=== PATIENT | male | born 1980 | race Caucasian/White ===

== ENCOUNTER 2018-02-12 15:00 | Emergency (ER) | payer MEDICAID, OTHER ==
[~2018-02-12] VITALS: Ht 172.7 cm; Wt 100.8 kg
[~2018-02-12 15:00] MED LIST: ALBU8.5H8 IH; ALBU8HFA PO; AMOX500C2 PO; DIPH-423 PO; FAMO-1 PO; GUAI120015 PO; GUAI1TBM19 PO; HYDR-4353 PO; HYDR-4383 PO; IBUP-1051 PO; IBUP-1984 PO; NAPR-232 PO; NO HOME MEDS; PRED20TA PO
[2018-02-12 15:16] VITALS: BP 154/94
[2018-02-12] MEDS ORDERED: ORPH100T2 PO (15:27)
[2018-02-12] MEDS ORDERED: HYDR-4353 PO (15:27)
== END 2018-02-12 15:36 | disposition home or self-care (01) ==
LOC: ER 15:00
DX: S16.1XXA Strain of muscle, fascia and tendon at neck level, initial encounter (principal); G44.209 Tension-type headache, unspecified, not intractable; J44.9 Chronic obstructive pulmonary disease, unspecified; K21.9 Gastro-esophageal reflux disease without esophagitis; G89.29 Other chronic pain; F15.90 Other stimulant use, unspecified, uncomplicated; Z91.030 Bee allergy status; Z79.2 Long term (current) use of antibiotics; Z79.899 Other long term (current) drug therapy; V49.59XA Passenger injured in collision with other motor vehicles in traffic accident, initial encounter; Y93.89 Activity, other specified; Y92.488 Other paved roadways as the place of occurrence of the external cause; Y99.8 Other external cause status
CPT/HCPCS: 99283

== ENCOUNTER 2019-02-20 12:43 | Emergency (ER) | payer MEDICAID, OTHER ==
[~2019-02-20] VITALS: Ht 172.7 cm; Wt 100.5 kg
[~2019-02-20 12:43] MED LIST changes: +ORPH100T2 PO
--- NOTE | 2019-02-20 13:26 | NUR ---
relieving RN for break, pt is resting quietly on gurney, c/o rt sided chest, rib, axillary and rt shoulder blade pain since Sunday, constant, "sharp", increases with deep breath, moving, no n/v, no SOB, no diaphoresis, no recent trauma, waiting to be evaluated by provider
[2019-02-20 14:10] LABS: BASOPHILS % (AUTO) 0.3 % (0-1); EOSINOPHILS # (AUTO) 0.2 X10'3 (0-0.9); EOSINOPHILS % (AUTO) 2.3 % (0-6); HEMATOCRIT 41.7 % (42.0-52.0); HEMOGLOBIN 14.7 g/dl (14.0-17.9); LYMPHOCYTES # (AUTO) 1.9 X10'3 (1.1-4.8); LYMPHOCYTES % (AUTO) 29.1 % (21-51); MEAN CORPUSCULAR HEMOGLOBIN 29.1 PG (27.0-31.0); MEAN CORPUSCULAR HGB CONC 35.1 g/dL (33.0-36.5); MEAN CORPUSCULAR VOLUME 82.7 FL (78-98); MEAN PLATELET VOLUME 10.1 FL (7.4-10.4); MONOCYTES # (AUTO) 0.5 X10'3 (0-0.9); MONOCYTES % (AUTO) 8.2 % (2-12); NEUTROPHILS # (AUTO) 3.9 X10'3 (1.8-7.7); NEUTROPHILS % (AUTO) 60.1 % (42-75); PLATELET COUNT 190 X10'3 (140-440); RED BLOOD COUNT 5.04 X10'6 (4.70-6.10); RED CELL DISTRIBUTION WIDTH 12.5 % (11.5-14.5); WHITE BLOOD COUNT 6.5 X10'3 (4.5-11.0)
[2019-02-20 14:16] LABS: ALANINE AMINOTRANSFERASE 185 U/L (12-78); ALBUMIN 4.5 G/DL (3.4-5.0); ALBUMIN/GLOBULIN RATIO 1.4 (1.1-1.5); ALKALINE PHOSPHATASE 44 IU/L (46-116); ANION GAP 7 (8-16); ASPARTATE AMINO TRANSFERASE 63 U/L (10-37); BILIRUBIN,TOTAL 0.5 MG/DL (0.1-1.0); BLOOD UREA NITROGEN 15 MG/DL (7-18); BUN/CREATININE RATIO 18.5 (5.4-32.0); CALCIUM 8.7 MG/DL (8.5-10.1); CHLORIDE 102 MMOL/L (99-107); CREATININE 0.81 MG/DL (0.60-1.10); D-DIMER < 0.19 MG/L FEU (0-0.50); GLUCOSE 94 MG/DL (70-104); PARTIAL THROMBOPLASTIN TIME 26 SECONDS (22-32); SODIUM 139 MMOL/L (135-145); TOTAL CARBON DIOXIDE 29.6 MMOL/L (24-32); TOTAL PROTEIN 7.7 G/DL (6.4-8.2); eGFR > 90 ML/MIN
[2019-02-20] MEDS ORDERED: ketorolac trometh inj. 60 MG/2 ML VIAL IM ONE (14:35)
[2019-02-20] MEDS ORDERED: CYCL-1 PO (14:44)
[2019-02-20] MEDS ORDERED: iohexol 350MG/ML 100ml bottle IV ONE (15:07)
--- NOTE | 2019-02-20 15:38 | NUR ---
Patient went to CT
[2019-02-20 16:53] VITALS: BP 121/71
[2019-02-20] MEDS ORDERED: DICL50TA8 PO (17:00)
== END 2019-02-20 17:09 | disposition home or self-care (01) ==
LOC: ER 12:44
DX: R07.89 Other chest pain (principal); J44.9 Chronic obstructive pulmonary disease, unspecified; K21.9 Gastro-esophageal reflux disease without esophagitis; G89.29 Other chronic pain; F15.90 Other stimulant use, unspecified, uncomplicated; Z91.030 Bee allergy status; Z79.82 Long term (current) use of aspirin; Z79.899 Other long term (current) drug therapy
CPT/HCPCS: 36415; 71045; 71275; 80053; 84484; 85025; 85379; 85610; 85730; 93005; 96372; 99284; J1885; Q9967

== ENCOUNTER 2020-09-01 19:46 | Emergency (ER) | payer MEDICAID ==
[~2020-09-01] VITALS: Ht 172.7 cm; Wt 78.6 kg
[~2020-09-01 19:46] MED LIST changes: +CYCL-1 PO; +DICL50TA8 PO
[2020-09-01 20:07] VITALS: BP 131/81
[2020-09-01] MEDS ORDERED: acetaminophen 325mg tablet PO ONE (21:15)
== END 2020-09-01 21:44 | disposition home or self-care (01) ==
LOC: ER 19:47
DX: J02.9 Acute pharyngitis, unspecified (principal); Z20.822 Contact with and (suspected) exposure to COVID-19; R19.7 Diarrhea, unspecified; R06.02 Shortness of breath; R51.9 Headache, unspecified; R53.83 Other fatigue; J44.9 Chronic obstructive pulmonary disease, unspecified; K21.9 Gastro-esophageal reflux disease without esophagitis; G89.29 Other chronic pain; F17.200 Nicotine dependence, unspecified, uncomplicated; F12.90 Cannabis use, unspecified, uncomplicated; Z87.01 Personal history of pneumonia (recurrent); Z91.030 Bee allergy status; Z79.2 Long term (current) use of antibiotics; Z79.899 Other long term (current) drug therapy
CPT/HCPCS: 87635; 99283; C9803

== ENCOUNTER 2020-11-18 08:48 | Emergency (ER) | payer MEDICAID ==
[~2020-11-18] VITALS: Ht 172.7 cm; Wt 81.8 kg
[~2020-11-18 08:48] MED LIST changes: +ALBU8.5H17 IH; -ALBU8.5H8 IH
[2020-11-18] MEDS ORDERED: ketorolac trometh. 30mg/ml inj. IM ONE (09:10)
[2020-11-18 09:26] LABS: BASOPHILS # (AUTO) 0.1 X10'3 (0-0.2); BASOPHILS % (AUTO) 0.8 % (0-1); EOSINOPHILS # (AUTO) 0.1 X10'3 (0-0.9); EOSINOPHILS % (AUTO) 1.8 % (0-6); HEMATOCRIT 42.2 % (42.0-52.0); HEMOGLOBIN 14.9 g/dl (14.0-17.9); LYMPHOCYTES # (AUTO) 1.6 X10'3 (1.1-4.8); LYMPHOCYTES % (AUTO) 22.9 % (21-51); MEAN CORPUSCULAR HEMOGLOBIN 29.6 PG (27.0-31.0); MEAN CORPUSCULAR HGB CONC 35.3 g/dL (33.0-36.5); MEAN PLATELET VOLUME 9.7 FL (7.4-10.4); MONOCYTES # (AUTO) 0.4 X10'3 (0-0.9); MONOCYTES % (AUTO) 6.2 % (2-12); NEUTROPHILS # (AUTO) 4.9 X10'3 (1.8-7.7); NEUTROPHILS % (AUTO) 68.3 % (42-75); PLATELET COUNT 225 X10'3 (140-440); RED BLOOD COUNT 5.02 X10'6 (4.70-6.10); RED CELL DISTRIBUTION WIDTH 12.8 % (11.5-14.5); WHITE BLOOD COUNT 7.1 X10'3 (4.5-11.0)
[2020-11-18 09:35] LABS: ALANINE AMINOTRANSFERASE 30 U/L (12-78); ALBUMIN 4.4 G/DL (3.4-5.0); ALBUMIN/GLOBULIN RATIO 1.3 (1.1-1.5); ALKALINE PHOSPHATASE 46 IU/L (46-116); ANION GAP 9 (8-16); ASPARTATE AMINO TRANSFERASE 13 U/L (10-37); BILIRUBIN,TOTAL 0.5 MG/DL (0.1-1.0); BLOOD UREA NITROGEN 16 MG/DL (7-18); BUN/CREATININE RATIO 16.2 (5.4-32.0); CALCIUM 9.1 MG/DL (8.5-10.1); CHLORIDE 106 MMOL/L (99-107); CREATININE 0.99 MG/DL (0.60-1.10); GLUCOSE 111 MG/DL (70-104); POTASSIUM 4.2 MMOL/L (3.5-5.1); SODIUM 140 MMOL/L (135-145); TOTAL CARBON DIOXIDE 25.1 MMOL/L (24-32); TOTAL PROTEIN 7.7 G/DL (6.4-8.2); eGFR 84 ML/MIN
[2020-11-18] MEDS ORDERED: IBUP-1986 PO (09:48)
[2020-11-18 10:05] LABS: D-DIMER < 0.19 MG/L FEU (0-0.50)
[2020-11-18 10:45] VITALS: BP 125/81
== END 2020-11-18 10:46 | disposition home or self-care (01) ==
LOC: ER 08:48
DX: R09.1 Pleurisy (principal); J44.9 Chronic obstructive pulmonary disease, unspecified; G89.29 Other chronic pain; M54.9 Dorsalgia, unspecified; F12.10 Cannabis abuse, uncomplicated; F15.10 Other stimulant abuse, uncomplicated; Z88.1 Allergy status to other antibiotic agents; Z88.8 Allergy status to other drugs, medicaments and biological substances; Z91.030 Bee allergy status
CPT/HCPCS: 36415; 71045; 80053; 83880; 85025; 85379; 93005; 96372; 99285; J1885

== ENCOUNTER 2020-12-14 12:50 | Emergency (ER) | payer MEDICAID ==
[~2020-12-14] VITALS: Ht 172.7 cm; Wt 81.8 kg
[~2020-12-14 12:50] MED LIST changes: +IBUP-1986 PO
[2020-12-14 12:53] VITALS: BP 136/91
[2020-12-14] MEDS ORDERED: ketorolac tromethamine 15mg/ml inj. IM ONE (13:30)
[2020-12-14] MEDS ORDERED: orphenadrine citrate 60mg/2ml inj. IM ONE (13:30)
[2020-12-14] MEDS ORDERED: ORPH100T2 PO (14:23)
[2020-12-14] MEDS ORDERED: IBUP-1984 PO (14:23)
== END 2020-12-14 15:03 | disposition home or self-care (01) ==
LOC: ER 12:50
DX: M54.42 Lumbago with sciatica, left side (principal); G89.29 Other chronic pain; J44.9 Chronic obstructive pulmonary disease, unspecified; K21.9 Gastro-esophageal reflux disease without esophagitis; F12.90 Cannabis use, unspecified, uncomplicated; F15.90 Other stimulant use, unspecified, uncomplicated; Z91.030 Bee allergy status; Z79.2 Long term (current) use of antibiotics; Z87.01 Personal history of pneumonia (recurrent); Z79.899 Other long term (current) drug therapy
CPT/HCPCS: 96372; 99284; J1885; J2360

== ENCOUNTER 2020-12-26 18:52 | Emergency (ER) | payer MEDICAID ==
[~2020-12-26] VITALS: Ht 172.7 cm; Wt 81.8 kg
[2020-12-26 19:00] VITALS: BP 126/79
== END 2020-12-26 21:40 | disposition home or self-care (01) ==
LOC: ER 18:53
DX: B34.9 Viral infection, unspecified (principal); Z20.822 Contact with and (suspected) exposure to COVID-19; K21.9 Gastro-esophageal reflux disease without esophagitis; J44.9 Chronic obstructive pulmonary disease, unspecified; G89.29 Other chronic pain; M54.9 Dorsalgia, unspecified; F12.10 Cannabis abuse, uncomplicated; F15.10 Other stimulant abuse, uncomplicated; Z91.030 Bee allergy status
CPT/HCPCS: 87635; 99283; C9803

== ENCOUNTER 2021-02-22 20:18 | Emergency (ER) | payer MEDICAID ==
[~2021-02-22] VITALS: Ht 172.7 cm; Wt 81.8 kg
[2021-02-22 20:33] VITALS: BP 136/96
== END 2021-02-22 21:57 | disposition home or self-care (01) ==
LOC: ER 20:19
DX: U07.1 COVID-19 (principal); J44.9 Chronic obstructive pulmonary disease, unspecified; K21.9 Gastro-esophageal reflux disease without esophagitis; F12.90 Cannabis use, unspecified, uncomplicated; F15.90 Other stimulant use, unspecified, uncomplicated; Z91.030 Bee allergy status; Z79.899 Other long term (current) drug therapy
CPT/HCPCS: 71045; 87635; 99284; C9803

== ENCOUNTER 2021-02-23 20:02 | Emergency (ER) | payer MEDICAID ==
[~2021-02-23] VITALS: Ht 172.7 cm; Wt 81.8 kg
[2021-02-23 20:18] VITALS: BP 164/92
== END 2021-02-23 20:42 | disposition left against medical advice (07) ==
LOC: ER 20:03
DX: U07.1 COVID-19 (principal); R07.89 Other chest pain; J44.9 Chronic obstructive pulmonary disease, unspecified; K21.9 Gastro-esophageal reflux disease without esophagitis; F12.90 Cannabis use, unspecified, uncomplicated; F15.90 Other stimulant use, unspecified, uncomplicated; Z91.030 Bee allergy status; Z79.899 Other long term (current) drug therapy
CPT/HCPCS: 93005; 99283

== ENCOUNTER 2021-03-01 12:19 | Emergency (ER) | payer MEDICAID ==
[~2021-03-01] VITALS: Ht 172.7 cm; Wt 29.1 kg
[2021-03-01 12:55] VITALS: BP 128/94
[2021-03-01 13:54] LABS: BASOPHILS # (AUTO) 0.1 X10'3 (0-0.2); BASOPHILS % (AUTO) 1.3 % (0-1); EOSINOPHILS % (AUTO) 0.3 % (0-6); HEMATOCRIT 46.5 % (42.0-52.0); HEMOGLOBIN 15.9 g/dl (14.0-17.9); LYMPHOCYTES # (AUTO) 1.4 X10'3 (1.1-4.8); LYMPHOCYTES % (AUTO) 21.4 % (21-51); MEAN CORPUSCULAR HEMOGLOBIN 28.9 PG (27.0-31.0); MEAN CORPUSCULAR HGB CONC 34.2 g/dL (33.0-36.5); MEAN CORPUSCULAR VOLUME 84.5 FL (78-98); MEAN PLATELET VOLUME 9.5 FL (7.4-10.4); MONOCYTES # (AUTO) 0.6 X10'3 (0-0.9); MONOCYTES % (AUTO) 8.9 % (2-12); NEUTROPHILS # (AUTO) 4.5 X10'3 (1.8-7.7); NEUTROPHILS % (AUTO) 68.1 % (42-75); PLATELET COUNT 261 X10'3 (140-440); RED CELL DISTRIBUTION WIDTH 12.6 % (11.5-14.5); WHITE BLOOD COUNT 6.6 X10'3 (4.5-11.0)
[2021-03-01 14:07] LABS: ALANINE AMINOTRANSFERASE 30 U/L (12-78); ALBUMIN 4.5 G/DL (3.4-5.0); ALBUMIN/GLOBULIN RATIO 1.2 (1.1-1.5); ALKALINE PHOSPHATASE 46 IU/L (46-116); ANION GAP 11 (8-16); ASPARTATE AMINO TRANSFERASE 16 U/L (10-37); BILIRUBIN,TOTAL 0.9 MG/DL (0.1-1.0); BLOOD UREA NITROGEN 12 MG/DL (7-18); BUN/CREATININE RATIO 13.8 (5.4-32.0); CALCIUM 8.9 MG/DL (8.5-10.1); CHLORIDE 105 MMOL/L (99-107); CREATININE 0.87 MG/DL (0.60-1.10); GLUCOSE 108 MG/DL (70-104); LIPASE 85 U/L (73-393); POTASSIUM 3.5 MMOL/L (3.5-5.1); SODIUM 141 MMOL/L (135-145); TOTAL CARBON DIOXIDE 25.1 MMOL/L (24-32); TOTAL PROTEIN 8.3 G/DL (6.4-8.2); eGFR > 90 ML/MIN
[2021-03-01] MEDS ORDERED: ketorolac tromethamine 15mg/ml inj. IM ONE (15:10)
[2021-03-01] MEDS ORDERED: ondansetron 4mg rapidly disintigrating tab PO ONE (15:15)
[2021-03-01] MEDS ORDERED: LOPE2CAP PO (16:07)
[2021-03-01] MEDS ORDERED: ONDA8TAB13 PO (16:07)
[2021-03-01 16:16] LABS: CLARITY,URINE SLIGHTLY CLOUDY (Clear); COLOR,URINE YELLOW (Yellow); GLUCOSE, URINE NEGATIVE (Neg); KETONES,URINE 15 mg/dl (Neg); LEUKOCYTE ESTERASE ,URINE NEGATIVE (Neg); NITRITES, URINE NEGATIVE (Neg); OCCULT BLOOD,URINE NEGATIVE (Neg); PH,URINE 6.5 (4.8-8.0); PROTEIN,URINE NEGATIVE (Neg); UA COLLECTION TYPE CLN CATCH MIDSTREAM; UROBILINOGEN,URINE 0.2 E.U/dL (0.2-1.0)
[2021-03-01 16:42] LABS: MUCUS STRANDS MANY /LPF (Neg); SQUAMOUS EPITHELIAL CELL,UR FEW /LPF (FEW)
[2021-03-01 16:43] LABS: BACTERIA,URINE FEW /HPF (Neg); RBC,URINE 0-2 /HPF (0-2); WBC,URINE 0-4 /HPF (0-4)
== END 2021-03-01 16:14 | disposition home or self-care (01) ==
LOC: ER 12:20
DX: U07.1 COVID-19 (principal); R10.10 Upper abdominal pain, unspecified; R53.83 Other fatigue; R11.2 Nausea with vomiting, unspecified; R19.7 Diarrhea, unspecified; J44.9 Chronic obstructive pulmonary disease, unspecified; K21.9 Gastro-esophageal reflux disease without esophagitis; G89.29 Other chronic pain; F12.90 Cannabis use, unspecified, uncomplicated; F15.90 Other stimulant use, unspecified, uncomplicated; Z87.01 Personal history of pneumonia (recurrent); Z91.030 Bee allergy status; Z79.2 Long term (current) use of antibiotics; Z79.899 Other long term (current) drug therapy
CPT/HCPCS: 36415; 74176; 80053; 81001; 83690; 85025; 96372; 99284; J1885

== ENCOUNTER 2021-09-22 06:43 | Emergency (ER) | payer MEDICAID ==
[~2021-09-22] VITALS: Ht 172.7 cm; Wt 85.9 kg
[~2021-09-22 06:43] MED LIST changes: +LOPE2CAP PO; +ONDA8TAB13 PO
[2021-09-22 06:44] VITALS: BP 139/89
[2021-09-22] MEDS ORDERED: triamcinolone acetonide 40mg/ml inj IM ONE (07:35)
[2021-09-22] MEDS ORDERED: orphenadrine citrate 60mg/2ml inj. IM ONE (07:35)
[2021-09-22] MEDS ORDERED: MELO-100 PO (09:44)
== END 2021-09-22 09:55 | disposition home or self-care (01) ==
LOC: ER 06:43
DX: M54.50 Low back pain, unspecified (principal); J44.9 Chronic obstructive pulmonary disease, unspecified; K21.9 Gastro-esophageal reflux disease without esophagitis; G89.29 Other chronic pain; F12.90 Cannabis use, unspecified, uncomplicated; F15.90 Other stimulant use, unspecified, uncomplicated; Z87.01 Personal history of pneumonia (recurrent); Z91.030 Bee allergy status; Z79.2 Long term (current) use of antibiotics; Z79.899 Other long term (current) drug therapy
CPT/HCPCS: 72131; 96372; 99284; J2360; J3301

== ENCOUNTER 2022-07-16 14:51 | Emergency (ER) | payer MEDICAID ==
[~2022-07-16] VITALS: Ht 172.7 cm; Wt 81.8 kg
[~2022-07-16 14:51] MED LIST changes: +MELO-100 PO; -ORPH100T2 PO; +ORPH100T4 PO
[2022-07-16 14:58] VITALS: BP 144/85
[2022-07-16 15:24] LABS: BASOPHILS # (AUTO) 0.1 X10'3 (0-0.2); BASOPHILS % (AUTO) 0.6 % (0-1); EOSINOPHILS % (AUTO) 0.1 % (0-6); HEMOGLOBIN 15.2 g/dl (14.0-17.9); LYMPHOCYTES # (AUTO) 0.7 X10'3 (1.1-4.8); LYMPHOCYTES % (AUTO) 6.4 % (21-51); MEAN CORPUSCULAR HEMOGLOBIN 28.7 PG (27.0-31.0); MEAN CORPUSCULAR HGB CONC 34.4 g/dL (33.0-36.5); MEAN CORPUSCULAR VOLUME 83.3 FL (78-98); MEAN PLATELET VOLUME 9.3 FL (7.4-10.4); MONOCYTES # (AUTO) 0.5 X10'3 (0-0.9); MONOCYTES % (AUTO) 4.3 % (2-12); NEUTROPHILS # (AUTO) 9.8 X10'3 (1.8-7.7); NEUTROPHILS % (AUTO) 88.6 % (42-75); PLATELET COUNT 266 X10'3 (140-440); RED BLOOD COUNT 5.28 X10'6 (4.70-6.10); RED CELL DISTRIBUTION WIDTH 12.9 % (11.5-14.5); WHITE BLOOD COUNT 11.1 X10'3 (4.5-11.0)
[2022-07-16 15:35] LABS: ALANINE AMINOTRANSFERASE 27 U/L (12-78); ALBUMIN/GLOBULIN RATIO 1.4 (1.1-1.5); ALKALINE PHOSPHATASE 44 IU/L (46-116); ANION GAP 12 (8-16); ASPARTATE AMINO TRANSFERASE 13 U/L (10-37); BILIRUBIN,TOTAL 0.9 MG/DL (0.1-1.0); BLOOD UREA NITROGEN 15 MG/DL (7-18); CALCIUM 9.6 MG/DL (8.5-10.1); CHLORIDE 105 MMOL/L (99-107); GLUCOSE 132 MG/DL (70-104); POTASSIUM 3.5 MMOL/L (3.5-5.1); SODIUM 142 MMOL/L (135-145); TOTAL CARBON DIOXIDE 24.6 MMOL/L (24-32); TOTAL PROTEIN 8.5 G/DL (6.4-8.2); eGFR 82 ML/MIN
[2022-07-16 15:44] LABS: ETHANOL < 0.010 GM/DL (0.0-0.010)
== END 2022-07-16 16:27 | disposition left against medical advice (07) ==
LOC: ER 14:52
DX: F32.A Depression, unspecified (principal); Z20.822 Contact with and (suspected) exposure to COVID-19; G89.29 Other chronic pain; M54.9 Dorsalgia, unspecified; J44.9 Chronic obstructive pulmonary disease, unspecified; K21.9 Gastro-esophageal reflux disease without esophagitis; F15.10 Other stimulant abuse, uncomplicated; F12.10 Cannabis abuse, uncomplicated; Z88.5 Allergy status to narcotic agent; Z79.899 Other long term (current) drug therapy
CPT/HCPCS: 36415; 80053; 80320; 84443; 85025; 87811; 99285

== ENCOUNTER 2022-11-13 10:08 | Emergency (ER) | payer MEDICAID ==
[~2022-11-13] VITALS: Ht 172.7 cm; Wt 98.0 kg
[2022-11-13 10:18] VITALS: BP 135/84; PULSE 70; RESP 18; TEMP 97.1; O2SAT 98
== END 2022-11-13 12:10 | disposition left against medical advice (07) ==
LOC: ER 10:09
DX: M79.601 Pain in right arm (principal); Z53.21 Procedure and treatment not carried out due to patient leaving prior to being seen by health care provider
CPT/HCPCS: 99281

== ENCOUNTER 2023-10-10 14:17 | Emergency (ER) | payer MEDICAID ==
[~2023-10-10] VITALS: Ht 172.7 cm; Wt 91.8 kg
[~2023-10-10 14:17] MED LIST changes: +ONDA-245 PO; -ONDA8TAB13 PO
[2023-10-10 14:36] VITALS: BP 177/132; PULSE 122; RESP 18; TEMP 97.8; O2SAT 99
--- NOTE | 2023-10-10 14:41 | NUR ---
pt report he does not want to wait and he is just going [facility]. pt walked out after triage
--- NOTE | 2023-10-11 10:48 | NUR ---
SPOKE WITH PT'S , PT WENT TO PMD AND WAS SENT BACK TO OUR ER VIA AMBULANCE. PT WS TREATED AND SENT HOME. STATES HE IS FEELING A LITTLE BETTER TODAY.
== END 2023-10-10 16:06 | disposition left against medical advice (07) ==
LOC: ER 14:18
DX: R10.32 Left lower quadrant pain (principal); R11.2 Nausea with vomiting, unspecified; N50.812 Left testicular pain; Z53.21 Procedure and treatment not carried out due to patient leaving prior to being seen by health care provider

== ENCOUNTER 2023-10-10 16:48 | Emergency (ER) | payer MEDICAID ==
[~2023-10-10] VITALS: Ht 172.7 cm; Wt 100.0 kg
[2023-10-10 17:26] VITALS: TEMP 97.9
[2023-10-10 17:52] LABS: BILIRUBIN,URINE MODERATE (Neg); CLARITY,URINE CLOUDY (Clear); COLOR,URINE YELLOW (Yellow); GLUCOSE, URINE NEGATIVE (Neg); KETONES,URINE 40 mg/dl (Neg); LEUKOCYTE ESTERASE ,URINE NEGATIVE (Neg); NITRITES, URINE NEGATIVE (Neg); OCCULT BLOOD,URINE NEGATIVE (Neg); PROTEIN,URINE 100 mg/dl (Neg); UROBILINOGEN,URINE 0.2 E.U/dL (0.2-1.0)
[2023-10-10 18:00] LABS: UA COLLECTION TYPE CLN CATCH MIDSTREAM
[2023-10-10 18:01] LABS: HYALINE CASTS >30 /LPF (NEGATIVE); MUCUS STRANDS MANY /LPF (Neg)
[2023-10-10 18:02] LABS: CAL OXALATE CRYSTALS 4+ /HPF (NEGATIVE); SPERM MODERATE /HPF (NEGATIVE)
[2023-10-10 18:03] LABS: BACTERIA,URINE FEW /HPF (Neg); RBC,URINE 0-2 /HPF (0-2); SQUAMOUS EPITHELIAL CELL,UR FEW /LPF (FEW); TRANSITIONAL EPI CELLS,URINE FEW /HPF; WBC,URINE 0-4 /HPF (0-4)
[2023-10-10 18:09] LABS: BASOPHILS # (AUTO) 0.1 X10'3 (0-0.2); BASOPHILS % (AUTO) 0.5 % (0-1); EOSINOPHILS % (AUTO) 0.3 % (0-6); HEMATOCRIT 43.8 % (42.0-52.0); HEMOGLOBIN 14.9 g/dl (14.0-17.9); LYMPHOCYTES % (AUTO) 8.8 % (21-51); MEAN CORPUSCULAR HEMOGLOBIN 28.5 PG (27.0-31.0); MEAN CORPUSCULAR HGB CONC 34.1 g/dL (33.0-36.5); MEAN CORPUSCULAR VOLUME 83.7 FL (78-98); MEAN PLATELET VOLUME 9.3 FL (7.4-10.4); MONOCYTES # (AUTO) 0.6 X10'3 (0-0.9); NEUTROPHILS # (AUTO) 9.8 X10'3 (1.8-7.7); NEUTROPHILS % (AUTO) 85.4 % (42-75); PLATELET COUNT 239 X10'3 (140-440); RED BLOOD COUNT 5.23 X10'6 (4.70-6.10); RED CELL DISTRIBUTION WIDTH 13.4 % (11.5-14.5); WHITE BLOOD COUNT 11.5 X10'3 (4.5-11.0)
[2023-10-10 18:21] LABS: ALANINE AMINOTRANSFERASE 123 U/L (12-78); ALBUMIN 4.7 G/DL (3.4-5.0); ALBUMIN/GLOBULIN RATIO 1.3 (1.1-1.5); ALKALINE PHOSPHATASE 54 IU/L (46-116); ANION GAP 15 (8-16); ASPARTATE AMINO TRANSFERASE 46 U/L (10-37); BILIRUBIN,TOTAL 0.8 MG/DL (0.1-1.0); BLOOD UREA NITROGEN 18 MG/DL (7-18); BUN/CREATININE RATIO 11.5 (10.0-20.0); CALCIUM 9.4 MG/DL (8.5-10.1); CHLORIDE 107 MMOL/L (99-107); CREATININE 1.56 MG/DL (0.60-1.10); GLUCOSE 96 MG/DL (70-104); LIPASE 28 U/L (16-77); POTASSIUM 4.3 MMOL/L (3.5-5.1); SODIUM 146 MMOL/L (135-145); TOTAL CARBON DIOXIDE 24.1 MMOL/L (24-32); TOTAL PROTEIN 8.2 G/DL (6.4-8.2); eCRCL 60 ML/MIN; eGFR 49 ML/MIN
[2023-10-10] MEDS ORDERED: iohexol 300mg/ml 100ml inj. ONE (18:24)
--- NOTE | 2023-10-10 18:38 | NUR ---
PT TO CT AT THIS TIME
[2023-10-10] MEDS: ondansetron/PF 4mg/2ml inj IV ONE (19:15)
[2023-10-10] MEDS: ketorolac trometh 15mg/ml vial 15 MG/ML ML IV ONE (19:16)
[2023-10-10 20:37] VITALS: BP 134/83; PULSE 80; RESP 16; O2SAT 99
== END 2023-10-10 20:40 | disposition home or self-care (01) ==
LOC: ER 16:48
DX: R16.1 Splenomegaly, not elsewhere classified (principal); F12.90 Cannabis use, unspecified, uncomplicated; F15.90 Other stimulant use, unspecified, uncomplicated; J44.9 Chronic obstructive pulmonary disease, unspecified; K21.9 Gastro-esophageal reflux disease without esophagitis; Z88.5 Allergy status to narcotic agent; Z91.030 Bee allergy status; Z79.2 Long term (current) use of antibiotics; Z79.899 Other long term (current) drug therapy
CPT/HCPCS: 36415; 74177; 80053; 81001; 83605; 83690; 84145; 85025; 96374; 96375; 99285; J1885; J2405; Q9967

== ENCOUNTER 2023-12-07 06:08 | Outpatient (CLI) | payer MEDICAID ==
[2023-12-07] MEDS ORDERED: LIDOcaine 1%/PF 5ML 10 MG/ML VIAL ONE (06:40)
[2023-12-07] MEDS ORDERED: iohexol 300 MG/1 ML 50ml polymer ONE (06:40)
[2023-12-07] MEDS ORDERED: LIDOcaine 1% 30ml preserv. free vial ONE (06:41)
[2023-12-07] MEDS ORDERED: GADOTERATE MEGLUMINE 7.5 MMOL/15 ML VIAL IV ONE (06:41)
== END 2023-12-07 23:59 | disposition home or self-care (01) ==
LOC: RAD 06:08
PROVIDERS: ATTEND Physician Assistant
DX: M25.331 Other instability, right wrist (principal); M25.531 Pain in right wrist; M65.841 Other synovitis and tenosynovitis, right hand; M67.431 Ganglion, right wrist; M25.431 Effusion, right wrist; J44.9 Chronic obstructive pulmonary disease, unspecified; Z79.1 Long term (current) use of non-steroidal anti-inflammatories (NSAID); Z79.899 Other long term (current) drug therapy
CPT/HCPCS: 25246; 73222; 77002; A9575; J3490; Q9967; 73115

== ENCOUNTER 2024-06-15 15:02 | Emergency (ER) | payer MEDICAID ==
[~2024-06-15] VITALS: Ht 172.7 cm; Wt 85.5 kg
[2024-06-15 15:11] VITALS: BP 128/86; PULSE 72; RESP 18; TEMP 98.2; O2SAT 97
--- NOTE | 2024-06-15 16:07 | RADIOLOGY REPORT ---
CLINICAL INDICATION: HAND PAIN TECHNIQUE: 3 radiographic views of the left hand were obtained. Comparison: None FINDINGS/IMPRESSION: There is no evidence of acute fracture or dislocation. The visualized joint space is well maintained. The alignment is anatomical. There is no radiopaque foreign body. HS:Y
--- NOTE | 2024-06-15 16:18 | Physician Documentation ---
History of Present Illness ~ Chief Complaint: Hand pain Stated Complaint: UNABLE TO BEND FINGER Time Seen by MD: 15:39 OK to notify your PCP?: Yes Primary Medical Doctor: eli Source: patient, family Mode of Arrival: POV Exam Limitations: no limitations HPI Paul is a 43-year-old male presenting with left hand pain. A couple days ago he was working on a car and bumped his left hand on a car part and did not have any pain. Today he was working on another car and bumped his finger and it swelled up and was causing pain. He showed pictures of his finger when swollen, it was quite large, which the swelling has partially resolved and the pain has subsided some. He takes ibuprofen on a daily basis for chronic back pain. Tetanus within 5 years: No Medication Reconciliation Allergies: Coded Allergies: hydromorphone (Unverified Allergy, Unknown, 06/15/24) venom-honey bee (Verified Allergy, Unknown, 06/15/24) Scheduled Amoxicillin Trihydrate* (Amoxicillin*), 500 MG PO TID Diphenhydramine Hcl* (Benadryl*), 25 MG PO Q6H Famotidine* (Pepcid*), 20 MG PO BID Guaifenesin (Mucinex), 1 TAB PO Q12H Guaifenesin/Dextromethorphan (Mucinex Dm ER 1,200-60 mg Tab), 1 TAB PO Q12H Hydrocodone Bit/Acetaminophen ([place] 10-325 Tablet), 1 TAB PO Q6H Hydrocodone/Acetaminophen ([place] 5-325 Tablet), 1 TABLET PO BID Ibuprofen (Ibuprofen), 1 TAB PO Q8H Ibuprofen* (Motrin*), 800 MG PO TID Loperamide Hcl (Loperamide), 2 CAP PO Q6H Meloxicam* (Meloxicam*), 1 TAB PO DAILY Naproxen (Naprosyn), 500 MG PO Q12H PRN PAIN Orphenadrine Citrate (Norflex), 1 TAB PO Q12H PRN Orphenadrine Citrate (Norflex), 1 TAB PO Q12H PRN Prednisone* (Prednisone*), 40 MG PO DAILY Prednisone* (Prednisone*), 40 MG PO DAILY Scheduled PRN Albuterol Sulfate (Proair Hfa), 2 PUFFS IH Q4H PRN for SOB or wheezing Cyclobenzaprine* (Cyclobenzaprine*), 1 TABLET PO Q8H PRN for muscle spasms Cyclobenzaprine* (Cyclobenzaprine*), 1 TABLET PO Q8H PRN for muscle spasms Diclofenac Sodium (Diclofenac Sodium), 1 TABLET PO BID PRN for pain Ibuprofen* (Motrin*), 600 MG PO Q6H PRN for pain Ondansetron 8mg ODT (Ondansetron Odt), 1 TAB PO TID PRN for nausea/vomiting albuterol inhaler (Pro-Air Inhaler), 1-2 PUFFS PO Q4H PRN for SOB or wheezing Miscellaneous Medications Home Med List (No Home Medications), (Reported) Past Medical History Past Medical History: COPD, Pneumonia, GERD, Hernia, Chronic Back Pain Past Surgical History: no surgical history Other Past Family History: NONE KNOWN Alcohol Use: None Drug Use: marijuana, methamphetamine Lives with: Family Lives In: Home Occupation: disabled Review of Systems All Other Systems at this time: Reviewed and Negative Physical Exam Vital Signs: RN Vital Signs have been reviewed: Yes, Temperature: 98.2, Source: Oral, Heart Rate: 72, Respiratory Rate: 18, BP: 128/86, Pulse Oximetry: 97, Weight: 85.450 Pulse Oximetry Reflects: adequate oxygenation Physical Exam . General: Alert, no apparent distress. HEENT: PERRL, EOMI, no injection, moist mucous membranes. Neck: Full range of motion. Respiratory: Lungs clear, no respiratory distress. Chest: No accessory muscle use. Cardiovascular: Regular rate and rhythm, no murmurs. Gastrointestinal: Soft, nontender, nondistended. Bowels sounds present. Extremities: Normal range of motion, no deformity. Tenderness to palpation to the base of the left 3rd metacarpal into the joint, with slight edema, normal range of motion Neurologic: Oriented x4. Psychiatric: Normal mood and affect. Skin: Normal color, warm and dry. No edema, no ecchymosis. Progress Results/Orders Reviewed/noted all lab results: Yes Results/Orders Vital Signs 06/15/24 15:11 Temp 98.2 Pulse 72 Resp 18 B/P (MAP) 128/86 Pulse Ox 97 EKG/XRAY/CT/US/VASC/MRI Bone/Soft Tissue X-Ray (Ext.) : Additional Comment Left hand x-ray as interpreted by me; no joint effusion, no acute fracture, no soft tissue swelling, no dislocation, or foreign body. Medical Decision Making Findings Paul is a 43-year-old male with left hand pain into proximal joint of the 3rd metacarpal. He showed me a picture on his phone of when this incident 1st happened today, and there is significant swelling to that joint. He states that the pain and swelling has been resolving since the incident and on exam there is slight edema over the joint but he has good range of motion with some tenderness to palpation. His x-ray was negative for acute fracture or dislocation. He was advised to take ibuprofen for pain relief and RICE. He should return back here for any new or worsening symptoms. He should follow up with his primary care provider in the next 3 days. Hand Diff Dx:Considerations: Include: Abrasion, Arthritis, Gout, Neurovascular injury, Sprain, Tenosynovitis Departure Disposition: 01 HOME / SELF CARE / HOMELESS Impression: Primary Impression: Hand pain Condition: Stable Discharge Instructions: Contusion (Bruise) Additional Instructions: As discussed you should take ibuprofen (also called Advil or Motrin) or naproxen (also called a Aleve) for your pain. If you are taking ibuprofen, you can take 600 mg every 6 hours, or 800 mg every 8 hours. If you are taking naproxen, you can take 500 mg every 12 hours. Do not take more than this amount as it can cause kidney problems or bleeding in your stomach. Do not take these m edications at the same time as it can increase your risk for these side effects. If you have a history of heart problems or have had uncontrolled blood pressure for a significant period of time she should not take these medications as it can increase your risk for heart attack or stroke. If your pain is not controlled, you can also take acetaminophen (also called Tylenol) as directed. As always, please take medications as directed. If you have any questions at all regarding your medications please contact the pharmacist, emergency department or your regular doctor. See your primary care provider in the next 3 days for follow up. Return back here for any new or worsening symptoms Thank you for choosing the [facility] today. We hope you feel better soon! Referrals: NO PRIMARY CARE PROVIDER (PCP) Education Educated: Patient, Family Educated regarding: diagnosis, treatment, prognosis, need for follow up Signature Scribe Signature: . Attestation: Scribed for Patience Gorman Pack Train Driver by Patience Guadalupe NP . 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
== END 2024-06-15 16:30 | disposition home or self-care (01) ==
LOC: ER 15:02
DX: M79.642 Pain in left hand (principal); J44.9 Chronic obstructive pulmonary disease, unspecified; F12.90 Cannabis use, unspecified, uncomplicated; F15.90 Other stimulant use, unspecified, uncomplicated; Z88.5 Allergy status to narcotic agent; Z88.8 Allergy status to other drugs, medicaments and biological substances; Z91.030 Bee allergy status
CPT/HCPCS: 73130; 99283

== ENCOUNTER 2024-11-20 06:18 | Outpatient (CLI) | payer MEDICAID ==
[2024-11-20] MEDS ORDERED: LIDOcaine 1% 30ml preserv. free vial ONE (06:36)
[2024-11-20] MEDS ORDERED: LIDOcaine 1%/PF 5ML 10 MG/ML VIAL ONE (06:36)
[2024-11-20] MEDS ORDERED: iohexol 300 MG/1 ML 50ml polymer ONE (06:36)
[2024-11-20] MEDS ORDERED: GADOTERATE MEGLUMINE 7.5 MMOL/15 ML VIAL IV ONE (06:36)
--- NOTE | 2024-11-20 08:46 | RADIOLOGY REPORT ---
C-ARM FLUOROSCOPY: PROCEDURE: Right shoulder arthrogram FLUOROSCOPY TIME: 0.1 Air Kerma: 5 mgy FINDINGS: Spot intraoperative C arm radiographs demonstrating right shoulder arthrogram for MRI. IMPRESSION: Please refer to surgical report for detailed findings.
--- NOTE | 2024-11-20 08:48 | RADIOLOGY REPORT ---
CLINICAL HISTORY: PAIN IN RIGHT SHOULDER TECHNIQUE: Multisequence multiplanar MR arthrogram images of the right shoulder were obtained after the uneventful intra-articular administration of dilute gadolinium contrast under fluoroscopic guidance. For details concerning the contrast injection, refer to the separately dictated same-day conventional arthrogram report. COMPARISON: No prior imaging of the right shoulder was available for comparison at the time of dictation. Correlation made to same day arthrogram injection Images. FINDINGS: Acromioclavicular joint: There is moderate acromioclavicular hypertrophy and moderate edema. There is Type 2 acromion. Small amount of fluid in the subacromial / subdeltoid bursa. Small amount of contrast visualized in the subacromial/ subdeltoid bursa. Rotator cuff tendons: Mild tendinosis of the distal supraspinatus and infraspinatus tendons without visualized tear. Mild tendinosis of the distal subscapularis tendon without evidence of tear. Teres minor tendon is intact and otherwise unremarkable. Biceps tendon: No significant tendinosis. No evidence of attrition or tear. Labrum: Mild fraying of the superior labrum. Suspected tear at the inferior labrum on the coronal images with linear T2 hyperintense signal in the inferior labrum and suspected trace Contrast extending into the tear. Bones: No fracture or focal marrow contusion. Muscles: Normal muscle bulk. No atrophy. Other: Motion artifact limits evaluation. IMPRESSION: 1. Motion limited study. 2. Rotator cuff tendinosis without evidence of tear. Contrast visualized in the subacromial/subdeltoid bursa without evidence of rotator cuff tear, may have occurred during or after the injection. 3. Fraying of the superior labrum and suspected tear of the inferior labrum. 4. Moderate acromioclavicular hypertrophy with mild subacromial/subdeltoid bursitis. 5. Additional findings as described above.
== END 2024-11-20 23:59 | disposition home or self-care (01) ==
LOC: RAD 06:18
PROVIDERS: ATTEND Family Medicine Sports Medicine
DX: S43.431A Superior glenoid labrum lesion of right shoulder, initial encounter (principal); S43.214A Anterior dislocation of right sternoclavicular joint, initial encounter; M25.511 Pain in right shoulder; M19.011 Primary osteoarthritis, right shoulder; M75.51 Bursitis of right shoulder; X58.XXXA Exposure to other specified factors, initial encounter; Y93.89 Activity, other specified; Y92.89 Other specified places as the place of occurrence of the external cause; Y99.8 Other external cause status
CPT/HCPCS: 23350; 73222; 77002; A9575; J2003; J3490; Q9967